=== PATIENT | female | born 1995 | race Caucasian/White ===

== ENCOUNTER 2021-01-13 12:20 | Emergency (ER) | payer OTHER ==
[~2021-01-13] VITALS: Ht 167.6 cm; Wt 81.7 kg
[2021-01-13] MEDS ORDERED: OMEPRAZOLE 20 M20 M1 PO (12:33)
[2021-01-13] MEDS ORDERED: BUSPIRONE HCL10 MG PO (12:33)
[2021-01-13 12:57] LABS: URINE BILIRUBIN NEGATIVE (Negative); URINE BLOOD TRACE (Negative); URINE CLARITY CLEAR; URINE COLOR YELLOW; URINE GLUCOSE-RANDOM NEGATIVE (Negative); URINE KETONES NEGATIVE (Negative); URINE LEUKOCYTES NEGATIVE (Negative); URINE NITRITE NEGATIVE (Negative); URINE PROTEIN NEGATIVE (Negative); URINE SPECIFIC GRAVITY 1.025 (1.005-1.030); URINE UROBILINOGEN 0.2 E.U./dl (0.2-1.0)
[2021-01-13 13:05] LABS: ABSOLUTE BASOPHILS 0.1 thou/uL (0.0-0.2); ABSOLUTE LYMPHOCYTES 1.2 thou/uL (0.8-5.3); ABSOLUTE MONOCYTES 0.3 thou/uL (0.0-1.2); ABSOLUTE NEUTROPHILS 7.2 thou/uL (1.6-8.1); BASOPHILS 0.6 %; EOSINOPHILS 0.3 %; HEMATOCRIT 35.2 % (37.0-47.0); HEMOGLOBIN 11.9 gm/dL (12.0-15.0); LYMPHOCYTES 13.5 %; MCH 29.8 pg (26.0-34.0); MCHC 33.8 g/dL (28.0-37.0); MONOCYTES 3.2 %; MPV 8.5 fl. (7.2-11.1); NUCLEATED RBCS 0 /100WBC; PLATELET COUNT* 237 thou/uL (150-400); POLYS 82.4 %; RDW-CV 13.2 % (10.5-14.5); WBC 8.7 thou/uL (4.0-11.0)
[2021-01-13 13:13] LABS: CALCIUM 8.6 mg/dL (8.5-10.1); CREATININE 0.8 mg/dL (0.6-1.3); POTASSIUM 3.8 mmol/L (3.5-5.1)
[2021-01-13 13:17] LABS: ALBUMIN 3.3 g/dL (3.4-5.0); TOTAL BILIRUBIN 0.3 mg/dL (<0.1-1.0); TOTAL PROTEIN 7.3 g/dL (6.4-8.2)
[2021-01-13 13:40] VITALS: BP 123/83
--- NOTE | 2021-01-13 14:34 | EKG ---
[place] [address] ELECTROCARDIOGRAM REPORT Name: LULU NAVNEET YUNG Room: [facility]#: [id number] Admission: 01/13/21 Attend Phys: Discharge: 01/13/21 Date of : [birth year] Date of Service: 01/13/21 1259 Report #: [id number] THIS REPORT FOR: //name// [facility] ED Test Date: 2021-01-13 Test Time: 12:59:55 Pat Name: NAVNEET YUNG Department: Room: Gender: F Head Of Business Development: DESIRE : 1995 Requested By: Nirav Devi Order Number: [id number] MD: Robbie Bassett Measurements Intervals [place] Rate: 74 P: 13 WI: 171 QRS: 58 QRSD: 90 T: 40 QT: 384 QTc: 426 Interpretive Statements Sinus rhythm septal q waves Baseline wander in lead(s) II,aVR No previous ECG available for comparison Electronically Signed On 01-13-2021 14:34:40 CDT by Robbie Bassett [email or web address] <ELECTRONICALLY SIGNED> By: Robbie Bassett MD, FAC 01/13/21 1434 1259 1259 Robbie Bassett MD, [facility] /EPI
== END 2021-01-13 13:41 | disposition home or self-care (01) ==
LOC: M.ERS 12:20
PROVIDERS: Physician Assistant
DX: R10.13 Epigastric pain (principal); Z79.899 Other long term (current) drug therapy